=== PATIENT | female | born 1970 | race Caucasian/White ===

== ENCOUNTER 2017-05-14 17:59 | Emergency (ER) | END 2017-05-14 19:13 | disposition home or self-care (01) ==

== ENCOUNTER 2017-12-06 09:46 | Emergency (ER) | END 2017-12-06 11:19 | disposition home or self-care (01) ==

== ENCOUNTER 2018-09-11 21:52 | Emergency (ER) | payer OTHER ==
[~2018-09-11] VITALS: Ht 144.8 cm; Wt 110.0 kg
[~2018-09-11 21:52] MED LIST: ACET1TAB40 PO; ACYC800T PO; AMOX500C2 PO; IBUP-1542 PO; NO MEDS; [UNRECOGNIZED DRUG - REMARK]
[2018-09-11 22:05] VITALS: Ht 144.8 cm; Wt 110.0 kg
[2018-09-11] MEDS ORDERED: SODIUM CHLORIDE 0.9% 1L BAG IV* STA (22:09)
[2018-09-11] MEDS ORDERED: SOD CHLORIDE 0.9% 1,000 ML IV STA (22:23)
[2018-09-11] MEDS ORDERED: IBUPROFEN 600 MG TAB PO ONE (22:30)
[2018-09-12] MEDS ORDERED: CHOL200056 PO (00:37)
[2018-09-12] MEDS ORDERED: NOL20 PO (00:38)
[2018-09-12] MEDS ORDERED: SULF1TAB31 PO (01:49)
[2018-09-12] MEDS ORDERED: IBUP-1542 PO (01:49)
--- NOTE | 2018-09-12 01:52 | ERD ---
ER Documentation Chief Complaint Chief Complaint FEVER X 4 DAYS, +LOW/UPPER BACK PAIN VS FLANK PAIN HPI This is a very pleasant 48 female comes in for 4 days along with flank pain. She denies any chills, but has complained of dysuria and urgency and frequency of urination. No nausea no vomiting. Flank pain is mild to moderate intensity with no exacerbating or alleviating factors. No recent sick contacts. No other current complaints. ROS All systems reviewed and are negative except as per history of present illness. Medications Home Meds Active Scripts Ibuprofen* (Motrin*) 600 Mg Tab, 600 MG PO Q6H PRN for PAIN AND OR ELEVATED TEMP, #30 TAB Prov:KOURTNEY MOHAMUD. 09/12/18 Sulfamethoxazole/Trimethoprim* (Bactrim Ds* Tablet) 1 Each Tablet, 1 TAB PO BID, #14 TAB Prov:KOURTNEY MOHAMUD 09/12/18 Reported Medications Tamoxifen Citrate* (Tamoxifen Citrate*) 20 Mg Tab, 20 MG PO DAILY for 90 Days, #90 09/12/18 Cholecalciferol (Vitamin D3) (Vitamin D-3) 2,000 Unit Tablet, 2000 UNIT PO 09/12/18 Discontinued Reported Medications [Can't Remember Meds] No Conflict Check 03/11/12 [No Meds] No Conflict Check 01/10/12 Discontinued Scripts Ibuprofen* (Motrin*) 600 Mg Tab, 600 MG PO Q6, #15 TAB Prov:CARRIE FARLEY MD 12/06/17 Acetaminophen with Codeine (Acetaminophen-Cod #3 Tablet) 1 Each Tablet, 1 TAB PO Q6H PRN for PAIN, #12 TAB Prov:CARRIE FARLEY MD 12/06/17 Acyclovir* (Acyclovir*) 800 Mg Tablet, 800 MG PO 5 TIMES DAILY for 7 Days, TAB Prov:CARRIE FARLEY MD 12/06/17 Ibuprofen* (Motrin*) 600 Mg Tab, 600 MG PO Q6H PRN for PAIN AND OR ELEVATED TEMP, #30 TAB Prov:DARIN MOJICA NP 05/14/17 Amoxicillin* (Amoxicillin*) 500 Mg Cap, 500 MG PO TID for 10 Days, CAP Prov:DARIN MOJICA NP 05/14/17 Ibuprofen* (Motrin*) 600 Mg Tab, 600 MG PO Q6H PRN for PAIN AND OR ELEVATED TEMP, #15 TAB Prov:ALLY FUNES PA-C 02/25/16 Allergies Allergies: Coded Allergies: No Known Allergy (Unverified , 09/12/18) PMhx/Soc History of Surgery: Yes (LEFT BREAST CA LUMPECTOMY 2011, ) Anesthesia Reaction: No Hx Neurological Disorder: No Hx Respiratory Disorders: No Hx Cardiac Disorders: No Hx Psychiatric Problems: No Hx Miscellaneous Medical Probl: No Hx Alcohol Use: No Hx Substance Use: No Hx Tobacco Use: No Smoking Status: Never smoker Physical Exam Vitals Vital Signs Date Temp Pulse Resp B/P (MAP) Pulse Ox O2 O2 Flow FiO2 Time Delivery Rate 09/11/18 103.0 107 20 141/67 96 22:05 (91) Physical Exam Const: No acute distress Head: Atraumatic Eyes: Normal Conjunctiva ENT: Normal External Ears, Nose and Mouth. Neck: Full range of motion. No meningismus. Resp: Clear to auscultation bilaterally Cardio: Regular rate and rhythm, no murmurs Abd: Soft, non tender, non distended. Normal bowel sounds Skin: No petechiae or rashes Back: No midline or flank tenderness Ext: No cyanosis, or edema Neur: Awake and alert Psych: Normal Mood and Affect Result Diagram: 09/11/18225109/11/182227 Results 24 hrs Laboratory Tests Test 09/11/18 00:45 09/11/18 22:22 09/11/18 22:28 09/11/18 22:52 Urine Color STRAW Urine Clarity CLEAR Urine pH 5.0 Urine Specific 1.004 [place] Urine Ketones NEGATIVE mg/dL Urine Nitrite NEGATIVE mg/dL Urine Bilirubin NEGATIVE mg/dL Urine NEGATIVE mg/dL Urobilinogen Urine Leukocyte NEGATIVE Laura/ul Esterase Urine Microscopic 1 /HPF RBC Urine Microscopic 2 /HPF WBC Urine Bacteria FEW /HPF Urine Hemoglobin 1+ mg/dL Urine Glucose NEGATIVE mg/dL Urine Total NEGATIVE mg/dl Protein POC Venous 0.9 mmol/L Lactate Sodium Level 139 mmol/L Potassium Level 4.0 mmol/L Chloride Level 108 mmol/L Carbon Dioxide 23 mmol/L Level Anion Gap 8 Blood Urea 13 mg/dl Nitrogen Creatinine 0.78 mg/dl Est Glomerular > 60 mL/min Filtrat Rate mL/min Glucose Level 118 mg/dl Calcium Level 9.1 mg/dl Total Bilirubin 0.5 mg/dl Direct Bilirubin 0.00 mg/dl Indirect 0.5 mg/dl Bilirubin Aspartate Amino 24 IU/L Transf (AST/SGOT) Alanine 20 IU/L Aminotransferase (ALT/SGPT) Alkaline 69 IU/L Phosphatase Total Protein 7.6 g/dl Albumin 3.9 g/dl Globulin 3.70 g/dl Albumin/Globulin 1.05 Ratio White Blood Count 13.4 10^3/ul Red Blood Count 3.84 10^6/ul Hemoglobin 11.8 g/dl Hematocrit 36.0 % Mean Corpuscular 93.8 fl Volume Mean Corpuscular 30.7 pg Hemoglobin Mean Corpuscular 32.8 g/dl Hemoglobin Concen t Red Cell 13.0 % Distribution Width Platelet Count 158 10^3/UL Mean Platelet 11.2 fl Volume Immature 0.400 % Granulocytes % Neutrophils % 65.5 % Lymphocytes % 23.6 % Monocytes % 9.3 % Eosinophils % 0.7 % Basophils % 0.5 % Nucleated Red 0.0 /100WBC Blood Cells % Immature 0.050 10^3/ul Granulocytes # Neutrophils # 8.8 10^3/ul Lymphocytes # 3.2 10^3/ul Monocytes # 1.3 10^3/ul Eosinophils # 0.1 10^3/ul Basophils # 0.1 10^3/ul Nucleated Red 0.0 10^3/ul Blood Cells # Test 09/12/18 00:15 Lactic Acid Level 0.9 mmol/L Current Medications Medications Dose Sig/Amanda Start Time Status Last (Trade) Ordered Route PRN Stop Time Admin Dose Reason Admin Sodium 3,300 ml BOLUS OVER 2 09/11/18 DC Chloride HOURS STAT 22:09 (NS) IV* 09/11/18 22:24 Ibuprofen 600 mg ONCE ONCE 09/11/18 DC 09/11/18 (Motrin) PO 22:30 22:32 09/11/18 22:31 Sodium 1,000 ml @ Q1H STAT 09/11/18 DC 09/11/18 Chloride 1,000 mls/hr IV 22:23 22:32 09/11/18 23:22 Procedures/MDM Medical decision [age]-year-old female with flank pain dysuria clinically represents a pyelonephritis. Her urinalysis is grossly negative, however given her symptomology she will be treated empirically. Cultures are pending. She will be discharged home with antibiotics and Motrin for fever and pain. She is been advised to follow-up with her primary care physician return for worsening symptoms here. Given dose of Rocephin prior to discharge Departure Diagnosis: Primary Impression: Fever Fever type: unspecified Qualified Codes: R50.9 - Fever, unspecified Condition: Stable Patient Instructions: Pyelonephritis, Female (Adult) KOURTNEY MOHAMUD September 12, 2018 01:52
[2018-09-12] MEDS ORDERED: CEFTRIAXONE 1 GM/50 ML (PMX) 50 ML IVPB ONE (02:00)
[2018-09-12 02:40] VITALS: BP 112/65; PULSE 73; RESP 20
== END 2018-09-12 02:40 | disposition home or self-care (01) ==
LOC: E/R 21:52
DX: R50.9 Fever, unspecified (principal); R10.9 Unspecified abdominal pain; Z85.3 Personal history of malignant neoplasm of breast
CPT/HCPCS: 36415; 71045; 80053; 81001; 83605; 85025; 87040; 87086; 93005; 96365; J0696; J7030; Z7502; Z7610